=== PATIENT | female | born 1955 | race Caucasian/White ===

== ENCOUNTER 2017-04-19 12:38 | Outpatient (CLI) | payer BC ==
--- NOTE | 2017-04-25 08:00 | Vascular Lab Report ---
CAROTID DUPLEX STUDY: RIGHT PSVEDV CCA PROX:[id number] CCA DIST:6115 ICA PROX:5213 ICA MID:8127 ICA DIST:7925 ECA: 74 VERT: 51 11 LEFT PSVEDV CCA PROX:6215 CCA DIST:6020 ICA PROX:7025 ICA MID:7726 ICA DIST:6525 ECA: 65 VERT: 35 11 REASON FOR EXAM: Carotid artery stenosis. COMMENTS ON THE RIGHT: Doppler frequency analysis is consistent with 16 to 49 percent diameter reduction of the internal carotid artery. Minimal amount of plaque is seen. The common carotid artery is patent. The external carotid artery is patent. The vertebral artery has antegrade flow. COMMENTS ON THE LEFT: Doppler frequency analysis is consistent with 16 to 49 percent diameter reduction of the internal carotid artery. Minimal amount of plaque is seen. The common carotid artery is patent. The external carotid artery is patent. The vertebral artery has antegrade flow. IMPRESSION: Less than 50% diameter reduction in the internal carotid arteries bilaterally. Consider repeat carotid artery duplex in 12 months.
== END 2017-04-19 12:39 | disposition home or self-care (01) ==
LOC: VAS 12:38
PROVIDERS: ATTEND Internal Medicine
DX: I65.23 Occlusion and stenosis of bilateral carotid arteries (principal); H35.039 Hypertensive retinopathy, unspecified eye
CPT/HCPCS: 93880

== ENCOUNTER 2018-03-12 09:26 | Outpatient (CLI) | payer BC ==
--- NOTE | 2018-03-12 15:40 | Mammography Report ---
BILATERAL DIGITAL SCREENING MAMMOGRAM with CAD: 03/12/18 09:26:00 CLINICAL: Routine screening. COMPARISON:04/19/17 FINDINGS: The breasts are heterogeneously dense, which may obscure small masses. No mass, architectural distortion or suspicious calcifications. IMPRESSION: No mammographic evidence of malignancy. BI-RADS CATEGORY: 1 - - Negative RECOMMENDATION: Routine mammographic screening in one year. COMMENT: Patient follow-up letters are generated by our [employer] application.
== END 2018-03-12 09:27 | disposition home or self-care (01) ==
LOC: MAMMO 09:26
PROVIDERS: ATTEND Internal Medicine
DX: Z12.31 Encounter for screening mammogram for malignant neoplasm of breast (principal)
CPT/HCPCS: 77067

== ENCOUNTER 2019-03-12 09:30 | Outpatient (CLI) | payer BC ==
--- NOTE | 2019-03-12 10:33 | Vascular Lab Report ---
PROCEDURE: VL CAROTID DUPLEX BILAT TECHNIQUE: Duplex Doppler ultrasound of the common, internal and external carotid arteries and the v ertebral arteries was performed bilaterally. Espinoza scale imaging, velocity spectral waveform analysis, and color flow Doppler were employed. HISTORY: SYNCOPE COMPARISONS: None . Note: Measurement of carotid stenosis is based on flow velocity values that correlate with the [place] Symptomatic Carotid Endarterectomy Trial (NASCET) based stenosis criteria using the internal carotid artery diameter as the denominator for stenosis calculation. FINDINGS: RIGHT carotid artery: Velocities: ICA PSV: 88 cm/sec ICA End diastolic: 29 cm/sec CCA PSV: 76 cm/sec IC/CC ratio: 1.16 Plaque/color flow: Mild smooth homogeneous plaque without significant spectral broadening or abnorma l color flow . Stenosis less than 50%. RIGHT vertebral artery: Antegrade systolic and diastolic flow LEFT carotid artery: Velocities: ICA PSV: 83 cm/sec ICA End diastolic: 34 cm/sec CCA PSV: 78 cm/sec IC/CC ratio: 1.06 Plaque/color flow: Mild heterogeneous plaque without significant spectral broadening or abnormal col or flow . Stenosis less than 50%. LEFT vertebral artery: Antegrade systolic and diastolic flow IMPRESSION: 1. RIGHT carotid: No hemodynamically significant (less than 50 percent) internal carotid artery óscar nosis. 2. LEFT carotid: No hemodynamically significant (less than 50 percent) internal carotid artery sten osis. 3. Vertebral arteries: Bilaterally antegrade. This document is electronically signed by Drake Zamora MD., March 12 2019 11:31:22 AM ET
== END 2019-03-12 09:31 | disposition home or self-care (01) ==
LOC: VAS 09:30
PROVIDERS: ATTEND Internal Medicine
DX: I25.10 Atherosclerotic heart disease of native coronary artery without angina pectoris (principal)
CPT/HCPCS: 93880